=== PATIENT | male | born 2000 | race Hispanic/Latino ===

== ENCOUNTER 2022-11-15 22:58 | Emergency (ER) | payer MEDICAID, OTHER ==
[~2022-11-15] VITALS: Ht 170.2 cm; Wt 115.2 kg
[2022-11-16] MEDS ORDERED: DOXY-252 PO
[2022-11-16] MEDS ORDERED: SULF1TAB42 PO
[2022-11-16 00:05] VITALS: BP 129/89; PULSE 89; RESP 16; O2SAT 99
== END 2022-11-16 00:12 | disposition home or self-care (01) ==
LOC: EDH 22:58
DX: L03.119 Cellulitis of unspecified part of limb (principal); J45.909 Unspecified asthma, uncomplicated; Z88.0 Allergy status to penicillin

== ENCOUNTER 2023-02-15 12:10 | Emergency (ER) | payer OTHER ==
[~2023-02-15] VITALS: Ht 170.2 cm; Wt 108.9 kg
[~2023-02-15 12:10] MED LIST: DOXY-252 PO; SULF1TAB42 PO
[2023-02-15 12:16] VITALS: BP 183/103; PULSE 91; RESP 18; O2SAT 98
[2023-02-15] MEDS ORDERED: BACITRACIN 1 EACH PACKET TP ONE (12:43)
[2023-02-15] MEDS ORDERED: IBUPROFEN 800 MG TAB PO ONE (13:00)
[2023-02-15] MEDS ORDERED: MUPI22OI2 TP (13:20)
[2023-02-15] MEDS ORDERED: DIPH,PERTUSS(ACELL),TET VAC/PF 0.5 ML VIAL IM ONE (13:30)
== END 2023-02-15 13:31 | disposition home or self-care (01) ==
LOC: EDH 12:10
DX: S80.212A Abrasion, left knee, initial encounter (principal); S90.812A Abrasion, left foot, initial encounter; J45.909 Unspecified asthma, uncomplicated; Z79.899 Other long term (current) drug therapy; Z88.0 Allergy status to penicillin; W01.0XXA Fall on same level from slipping, tripping and stumbling without subsequent striking against object, initial encounter; Y93.89 Activity, other specified; Y92.89 Other specified places as the place of occurrence of the external cause; Y99.8 Other external cause status
CPT/HCPCS: 73630; 90471; 90715

== ENCOUNTER 2023-12-17 23:15 | Inpatient (IN) | payer SELFPAY ==
[~2023-12-17] VITALS: Ht 170.2 cm; Wt 120.3 kg
[~2023-12-17 23:15] MED LIST changes: +MUPI22OI2 TP
[2023-12-17 23:51] LABS: BASOPHILS # (AUTO) 0.03 K/uL (0.00-0.20); BASOPHILS % (AUTO) 0.3 % (0.0-5.0); EOSINOPHILS # (AUTO) 0.14 K/uL (0.00-0.70); EOSINOPHILS % (AUTO) 1.4 % (0.0-8.0); HEMATOCRIT 47.7 % (42-54); IMMATURE GRANULOCYTE ABSOLUTE 0.03 K/uL (0-1); LYMPHOCYTES # (AUTO) 1.5 K/uL (1.0-4.8); LYMPHOCYTES % (AUTO) 14.9 % (21.0-51.0); MEAN CORPUSCULAR HEMOGLOBIN 28.9 pg (27.0-33.0); MEAN CORPUSCULAR HGB CONC 34.4 g/dL (32.0-36.0); MONOCYTES # (AUTO) 0.7 K/uL (0.1-1.0); MONOCYTES % (AUTO) 7.4 % (3.0-13.0); NEUTROPHILS # (AUTO) 7.6 K/uL (1.8-7.7); NEUTROPHILS % (AUTO) 75.7 % (40.0-77.0); PLATELET COUNT (AUTO) 329 K/uL (130-400); RED BLOOD CELL COUNT(AUTO) 5.68 MIL/uL (4.50-6.20); RED CELL DISTRIBUTION WIDTH 12.8 % (11.0-15.5)
[2023-12-18] VITALS (25 sets, daily range): BP systolic 109–149; BP diastolic 62–89; PULSE 61–95; RESP 15–19; O2SAT 98
[2023-12-18 00:11] LABS: INR 1.01 (0.85-1.15); PROTHROMBIN TIME 10.9 SEC (9.6-11.6)
[2023-12-18 00:12] LABS: CREATININE 0.9 mg/dL (0.5-1.3); POTASSIUM 3.9 mmol/L (3.5-5.1)
[2023-12-18 00:13] LABS: PARTIAL THROMBOPLASTIN TIME 26.6 SEC (26.3-35.5)
[2023-12-18 00:16] LABS: ALBUMIN 4.5 g/dL (3.5-5.0); BILIRUBIN,DIRECT 0.1 mg/dL (0.0-0.3); BILIRUBIN,TOTAL 0.5 mg/dL (0.2-1.0); TOTAL PROTEIN, SERUM 8.5 g/dL (6.0-8.3)
[2023-12-18] MEDS: ONDANSETRON 4MG INJ IVP ONE (00:35)
[2023-12-18] MEDS: LACTATED RINGERS 1000ML 1,000 ML IV ONE (00:35)
[2023-12-18] MEDS: PANTOPRAZOLE 40 MG/VIAL IVP ONE (00:36)
[2023-12-18] MEDS: octREOtide aceTATe 100 MCG/ML AMP IVP ONE (00:36)
[2023-12-18] MEDS: octREOtide aceTATe 1,250 MCG in 0.9% NACL 250ML 250 ML IV SCH (01:02)
[2023-12-18] MEDS: PANTOPRAZOLE 40MG INJ 80 MG in 0.9%NACL 100ML 100 ML IV SCH (01:11)
[2023-12-18 03:30] LABS: APPEARANCE,URINE CLEAR (CLEAR); BILIRUBIN,URINE NEGATIVE (NEGATIVE); COLOR,URINE YELLOW (YELLOW); GLUCOSE, URINE (UA) NEGATIVE (NEGATIVE); KETONES,URINE 150 mg/dL (NEGATIVE); LEUKOCYTE ESTERASE ,URINE NEGATIVE Leu/uL (NEGATIVE); NITRATE,URINE NEGATIVE (NEGATIVE); OCCULT BLOOD,URINE NEGATIVE (NEGATIVE); PROTEIN,URINE 20 mg/dL (NEGATIVE); UROBILINOGEN,URINE 0.2 mg/dL (0.2-1.0)
[2023-12-18] MEDS ORDERED: POTASSIUM CHLORIDE 20MEQ/100ML 100 ML IV PRN (03:30)
[2023-12-18] MEDS ORDERED: ONDANSETRON 4MG INJ IV PRN (03:30)
[2023-12-18] MEDS ORDERED: MAGNESIUM 2GM PREMIX 50ML 50 ML IV PRN (03:30)
[2023-12-18 03:33] LABS: ADD UA MICROSCOPIC YES
[2023-12-18 03:34] LABS: MUCUS,URINE FEW LPF (None Seen); WBC,URINE 0-1 /HPF (0-1)
[2023-12-18] MEDS: LACTATED RINGERS 1000ML 1,000 ML IV SCH (03:46)
[2023-12-18 05:23] LABS: BASOPHILS # (AUTO) 0.02 K/uL (0.00-0.20); BASOPHILS % (AUTO) 0.2 % (0.0-5.0); EOSINOPHILS # (AUTO) 0.08 K/uL (0.00-0.70); EOSINOPHILS % (AUTO) 0.9 % (0.0-8.0); HEMATOCRIT 40.7 % (42-54); IMMATURE GRANULOCYTE ABSOLUTE 0.03 K/uL (0-1); LYMPHOCYTES # (AUTO) 1.2 K/uL (1.0-4.8); LYMPHOCYTES % (AUTO) 13.4 % (21.0-51.0); MEAN CORPUSCULAR HGB CONC 34.2 g/dL (32.0-36.0); MEAN CORPUSCULAR VOLUME 84.8 fL (80-100); MONOCYTES # (AUTO) 0.4 K/uL (0.1-1.0); MONOCYTES % (AUTO) 4.8 % (3.0-13.0); NEUTROPHILS # (AUTO) 7.1 K/uL (1.8-7.7); NEUTROPHILS % (AUTO) 80.4 % (40.0-77.0); PLATELET COUNT (AUTO) 280 K/uL (130-400); RED CELL DISTRIBUTION WIDTH 12.8 % (11.0-15.5); WHITE BLOOD COUNT (AUTO) 8.8 K/uL (4.8-10.8)
[2023-12-18 05:48] LABS: ALBUMIN 3.4 g/dL (3.5-5.0); BILIRUBIN,DIRECT 0.1 mg/dL (0.0-0.3); BILIRUBIN,TOTAL 0.5 mg/dL (0.2-1.0); CREATININE 0.8 mg/dL (0.5-1.3); TOTAL PROTEIN, SERUM 6.6 g/dL (6.0-8.3)
[2023-12-18] MEDS: KETOROLAC 15MG/ML VIAL (15MG/ML) IV ONE (05:55)
[2023-12-18] MEDS ORDERED: cefTRIAXone 1G VIAL IVPB SCH (10:30)
[2023-12-18] MEDS ORDERED: M.V.I. IV [ADULT] 10 ML, FOLic ACID 5 MG/ML VIAL 1 MG, THIAMINE HCL 100 MG in 0.9%NACL ... IV SCH (10:30)
[2023-12-18 10:41] LABS: AMPHET/METH SCREEN,URINE NEGATIVE (NEGATIVE); BARBITURATE SCREEN, URINE NEGATIVE (NEGATIVE); BENZODIAZEPINES SCREEN,URINE NEGATIVE (NEGATIVE); CANNABINOID SCREEN,URINE POSITIVE (NEGATIVE); COCAINE SCREEN,URINE NEGATIVE (NEGATIVE); OPIATE SCREEN,URINE NEGATIVE (NEGATIVE); PHENCYCLIDINE SCREEN,URINE NEGATIVE (NEGATIVE)
[2023-12-18] MEDS ORDERED: COMPOUND IV REFRIGERATED 1 EACH IVSOLN MISC PRN (12:00)
[2023-12-18] MEDS ORDERED: proPOFol 10 MG/ML 20ML VIAL IV ONE ×2 (14:27→14:35)
[2023-12-18] MEDS: ONDANSETRON 4MG INJ ONE (15:35)
[2023-12-18] MEDS: MEPERIDINE-PF 25 MG/ML SYG ONE (15:36)
[2023-12-18] MEDS: PANTOPRAZOLE 40 MG/VIAL IVP SCH (20:41)
[2023-12-18] MEDS: SUCRALFATE 1 GM TABLET PO SCH (21:00)
[2023-12-19 00:18] VITALS: BP 141/79; PULSE 61; RESP 18
[2023-12-19 03:55] LABS: HEMATOCRIT 41.2 % (42-54); MEAN CORPUSCULAR HEMOGLOBIN 28.9 pg (27.0-33.0); MEAN CORPUSCULAR HGB CONC 33.5 g/dL (32.0-36.0); MEAN CORPUSCULAR VOLUME 86.4 fL (80-100); RED BLOOD CELL COUNT(AUTO) 4.77 MIL/uL (4.50-6.20); RED CELL DISTRIBUTION WIDTH 12.6 % (11.0-15.5); WHITE BLOOD COUNT (AUTO) 6.8 K/uL (4.8-10.8)
[2023-12-19 04:04] VITALS: BP 132/67; PULSE 51; RESP 18
[2023-12-19 04:28] LABS: ALBUMIN 3.5 g/dL (3.5-5.0); BILIRUBIN,TOTAL 0.6 mg/dL (0.2-1.0); MAGNESIUM 1.9 mg/dL (1.80-2.40); TOTAL PROTEIN, SERUM 6.9 g/dL (6.0-8.3)
[2023-12-19 08:00] VITALS: BP 153/79; PULSE 69; RESP 17
[2023-12-19 12:00] VITALS: BP 135/79; PULSE 57; RESP 18
[2023-12-19] MEDS ORDERED: PANT40TA55 PO (15:50)
[2023-12-19] MEDS ORDERED: SUCR1TAB PO (15:50)
[2023-12-19 16:00] VITALS: BP 139/79; PULSE 70; RESP 17
== END 2023-12-19 19:10 | disposition home or self-care (01) | DRG 369 ==
LOC: EDH 23:15 → EDHIP 23:16 → 4CH 12-18 03:58
PROVIDERS: ADMIT Hospitalist; ATTEND Hospitalist
PROC: 0W3P8ZZ Control Bleeding in Gastrointestinal Tract, Via Natural or Artificial Opening Endoscopic (ICD-10-PCS; principal; 2023-12-18)
PROC: 0DB68ZX Excision of Stomach, Via Natural or Artificial Opening Endoscopic, Diagnostic (ICD-10-PCS; 2023-12-18)
DX: K22.6 Gastro-esophageal laceration-hemorrhage syndrome (principal); E87.1 Hypo-osmolality and hyponatremia; Z68.41 Body mass index [BMI] 40.0-44.9, adult; F10.20 Alcohol dependence, uncomplicated; K29.71 Gastritis, unspecified, with bleeding; J45.909 Unspecified asthma, uncomplicated; E66.01 Morbid (severe) obesity due to excess calories; Z88.1 Allergy status to other antibiotic agents; Z56.0 Unemployment, unspecified; Z82.49 Family history of ischemic heart disease and other diseases of the circulatory system; Z83.3 Family history of diabetes mellitus
CPT/HCPCS: 36415; 43239; 43255; 76700; 80048; 80053; 80076; 80305; 81001; 82977; 83735; 85025; 85027; 85610; 85730; 86850; 86900; 86901; 88305; 88312; G0378; J1885; J2175; J2354; J2405; J2470; J2704; J3411; J3490; J7030; J7050; J7120; A4215; A4222; A4223; A4620; A4649

== ENCOUNTER 2024-12-19 05:49 | Emergency (ER) | payer SELFPAY ==
[~2024-12-19] VITALS: Ht 175.3 cm; Wt 127.0 kg
[~2024-12-19 05:49] MED LIST changes: +PANT40TA55 PO; +SUCR1TAB PO
[2024-12-19 06:00] VITALS: BP 140/92; PULSE 104; RESP 18; TEMP 98.4; O2SAT 98
--- NOTE | 2024-12-19 06:48 | HMCIMG ---
EXAM: CR right ankle, 3 View. CLINICAL HISTORY: TWISTED, SWELLING NOTED COMPARISON: None provided. FINDINGS: BONES: No acute fracture or aggressive appearing osseous lesion. JOINTS: The joint spaces appear within normal limits. No dislocation. No radiographic evidence of a joint effusion. SOFT TISSUES: Mild soft tissue swelling. IMPRESSION: No acute osseous abnormality. Mild soft tissue swelling about the right ankle. /[place]
--- NOTE | 2024-12-19 06:58 | ERN ---
ED Note History of Present Illness Stated Complaint: RT ANKLE INJURY Chief Complaint: Ankle Problem Time Seen by MD: 06:14 Dictation: This is a 24-year-old morbidly obese male who came into the emergency room with his mother complaining of right ankle injury. He was walking down the steps and tripped and fell down and twisted his ankle. This happened yesterday and he started experiencing swelling of the right ankle and pain while walking and hence he took Motrin around 2:00 a.m. and came into the ER for further evaluation. He denied any injury any other place. No loss of consciousness. Not on blood thinners. He has had similar episode at the ground level Denies any bleeding lacerations or deformity of the ankle. Temperature 97.5 pulse 101 respirations 20 blood pressure 148/93 with a pulse oximetry of 100% on room air Allergies: Coded Allergies: amoxicillin (Unverified Allergy, Severe, hives, 12/18/23) Home Meds Active Scripts Pantoprazole Sodium (Protonix) 40 Mg Ectab, 40 MG PO DAILY for 14 Days, #14 TAB.EC 0 Refills Prov:HORTENCIA MAX MD 12/19/23 Sucralfate (Carafate) 1 Gram Tablet, 1 GM PO QID for 14 Days, #56 TAB 0 Refills Prov:HORTENCIA MAX MD 12/19/23 Mupirocin (Mupirocin Ointment) 2 % Oint, 22 GM TP TID, #60 GM apply after cleansing to affected abrasions on lower extremeities Prov:SANGEETHA HAJI 02/15/23 Doxycycline Hyclate (Doxycycline Hyclate) 100 Mg Tablet., 100 MG PO BID, #20 TAB Prov:GUADALUPE MEHTA MD 11/16/22 Sulfamethoxazole/Trimethoprim (Bactrim Ds Tablet) 1 Each Tablet, 1 TAB PO BID for 10 Days, #20 TAB 0 Refills Prov:GUADALUPE MEHTA MD 11/16/22 Past Medical History Past Medical History: Asthma Surgical History: None Family History: DM, HTN Social History: Negative, Lives with family RN Note Reviewed/Agreed w/PFSH: Yes Review of System Dictation Constitutional: Negative for fever,chills, and weight loss Eyes: Negative for injury, pain,redness, and discharge ENT: Negative for injury,pain or swelling Cardiovascular: Negative for chest pain, palpitations, and edema Respiratory: Negative for shortness of breath, cough, and wheezing, Abdomen/GI: Negative for abdominal pain, nausea, vomiting, diarrhea, and constipation Back: Negative for injury and pain : Negative for injury, bleeding and discharge MS/Extremity: Positive for right ankle injury and pain Skin: Negative for rash, and discoloration Neuro: Negative for headache, weakness, numbness, tingling, and seizure Psych: Negative for suicide ideation, homicidal ideation, and hallucinations Initial Vital Sign VS Vital Signs Date Time Temp Pulse Resp B/P (MAP) Pulse Ox O2 Delivery O2 Flow Rate FiO2 12/19/24 05:50 97.5 101 20 148/93 100 Room Air 12/19/24 06:00 0 21 Physical Exam Dictation General: awake, alert, NAD morbidly obese Head/Face: Normocephalic, atraumatic Eyes: PERRL, EOMI, vision at baseline ENT: oral cavity clear, TMs clear, no signs of infection Neck: Trachea midline, supple, no nuchal rigidity Cardiovascular: RRR, normal S1/S2, No MRGs, no JVD Respiratory: CTAB, no respiratory distress, No rales or wheezes Abdomen: Soft, non-tender, non-distended, normal bowel sounds, no guarding or rebound. Skin: Warm, dry, normal turgor, no rash MS/Extremity: Pulses equal, no cyanosis, neurovascular intact, FROM right ankle swollen but no ecchymosis no open wounds no deformity. Neuro: COAx4, GCS 15, strength 5/5, CN 2-12 intact, normal cerebellar exam, normal gait, Psych: Normal behavior, mood, and affect normal Extremities-trace edema without any palpable cords, Homans sign is negative Results (Laboratory/Radiology) Labs Reviewed?: Yes X-RAY Comment: REASON: TWISTED, SWELLING NOTED ORDERING PHYSICIAN: VONNIE VELARDE MD PROCEDURE: [id number] - ANKLE COMP 3VWS RT EXAM: CR right ankle, 3 View. CLINICAL HISTORY: TWISTED, SWELLING NOTED COMPARISON: None provided. FINDINGS: BONES: No acute fracture or aggressive appearing osseous lesion. JOINTS: The joint spaces appear within normal limits. No dislocation. No radiographic evidence of a joint effusion. SOFT TISSUES: Mild soft tissue swelling. IMPRESSION: No acute osseous abnormality. Mild soft tissue swelling about the right ankle. /[place] DICTATED BY: HARVINDER RODRIGUEZ Jr., MD DATE: 12/19/2447 ELECTRONICALLY SIGNED BY: HARVINDER RODRIGUEZ Jr., MD DATE: 12/19/24 0747 Close ED Course ED Course Orders Procedure Category Date Status Time Ankle Comp 3vws Rt RAD 12/19/24 Resulted 05:55 Ketorolac PHA 12/19/24 Complete Tromethamine 30mg/Ml 06:30 Current Medications Medications (Trade) Dose Ordered Sig/Ira Route PRN Reason Start Time Stop Time Status Last Admin Dose Admin Ketorolac Tromethamine (toRADol) 30 mg ONCE ONCE IM 12/19/24 06:30 12/19/24 06:31 DC 12/19/24 06:32 Vital Signs Date Time Temp Pulse Resp B/P (MAP) Pulse Ox O2 Delivery O2 Flow Rate FiO2 12/19/24 06:00 98.4 104 18 140/92 98 Room Air* 0 21 12/19/24 05:50 97.5 101 20 148/93 100 Room Air We will perform imaging and administer medications according to the patient's complaint. Once the results are available, will review and personally interpreted the labs to rule out any acute life-threatening emergency the trach require immediate intervention and treatment. I will then re-evaluate the ray ent after treatment and diagnostic exams have return to determine whether the patient requires any further testing, can safely be discharged home or need further admission to hospital for additional treatment and evaluation. 6:55 a.m. x-ray of the ankle does not show any acute fracture or dislocation. We will give an ankle brace pain medication I updated the patient and his mother on the x-ray findings and answered all their questions. Recommended rest and ice for the right ankle and a brace for at least over the weekend. Medical Decision Making MDM Differential diagnosis: Ankle sprain, fracture, dislocation, contusion Rationale: Tests considered and ordered secondary to shared decision making include: Previous outside records reviewed: Old ER visits. Risk of complication and/or morbidity or mortality of patient management: None Medications-Per medication reconciliation Need for hospitalization: Patient does not meet criteria for hospitalization. Need for emergency major/minor surgery: No There are no social concerns with this patient. Prescription drug management Prescriptions will include symptomatic care Patient's prior external medical records from other ER visits were reviewed by me as indicated. Prior testing and results from previous visits were reviewed. Prior tests were taken into account with medical decision making and resource utilization, independent historian/historians were used to obtain complete medical history. I independently interpreted the test that were performed, results were reviewed by me and considered findings on radiology if ordered. Medical management and examination interpretation discussions were had by me with other qualified healthcare professionals as indicated for the patient's care. Problem List Problem List: (1) Morbid obesity (2) Fall (on) (from) other stairs and steps, initial encounter (3) Moderate right ankle sprain DX & DISP Disposition: Discharge Departure Impression: Primary Impression: Fall (on) (from) other stairs and steps, initial encounter Additional Impressions: Moderate right ankle sprain, Morbid obesity Condition: Stable Scripts Ketorolac Tromethamine (Toradol) 10 Mg Tab 10 MG PO QID for pain for 5 Days, #20 TAB 0 Refills Prov: VONNIE VELARDE MD 12/19/24 Additional Instructions: Patient and the caregiver have been informed of all the diagnostic tests and the imaging conducted during the today's visit to the emergency room and has verbalized understanding of the results I have personally reviewed and i nterpreted all diagnostic exams performed here in the ER today as well as the vital signs documented by the nursing staff. The patient is now being discharged to home and should follow up with the primary care physician or the specialist as directed by the ER staff. Follow-up with primary care provider in 1 to 2 days. Take medications as directed here in the emergency room. Okay to continue home medications unless otherwise discussed during your visit in the emergency room today. Return to your nearest emergency room if symptoms worsen or if there is no improvement. Call 911 if you need immediate assistance. Take Tylenol or Motrin [id number] as needed and if no contraindications are present. Increase oral hydration. A wound culture or urine culture was ordered here in the emergency room department please follow-up with primary care provider and advise them to get repeat ports from our facility. If you had any Nathan wrap/splints that were applied here, please do not remove them until you see your primary care or specialty. Referrals: NONE VONNIE VELARDE MD Dec 19, 2024 06:58
[2024-12-19] MEDS ORDERED: KETO10 PO (07:08)
== END 2024-12-19 07:29 | disposition home or self-care (01) ==
LOC: EDH 05:49
DX: S93.401A Sprain of unspecified ligament of right ankle, initial encounter (principal); E66.01 Morbid (severe) obesity due to excess calories; J45.909 Unspecified asthma, uncomplicated; Z79.899 Other long term (current) drug therapy; Z88.0 Allergy status to penicillin; W01.0XXA Fall on same level from slipping, tripping and stumbling without subsequent striking against object, initial encounter; Y93.89 Activity, other specified; Y92.89 Other specified places as the place of occurrence of the external cause; Y99.8 Other external cause status
CPT/HCPCS: 99284; 73610; 96372; J1885; 99283